=== PATIENT | female | born 1985 | race African-American/Black ===

== ENCOUNTER 2017-10-23 19:01 | Inpatient (IN) | payer MEDICAID ==
[~2017-10-23] VITALS: Ht 162.6 cm; Wt 107.0 kg
[~2017-10-23 19:01] MED LIST: DIVA500T35 PO; FERR-89 PO; MIRT30 PO; RISP2TAB4 PO; RISP3 PO
[2017-10-23 19:26] LABS: BASOPHILS # (AUTO) 0.04 K/uL (0.00-0.20); BASOPHILS % (AUTO) 0.4 % (0.0-2.0); EOSINOPHILS # (AUTO) 0.82 K/uL (0.00-0.70); EOSINOPHILS % (AUTO) 8.54 % (1.0-6.0); HEMATOCRIT 37.2 % (36-46); HEMOGLOBIN 12.2 g/dL (12.0-16.0); LYMPHOCYTES # (AUTO) 2.7 K/uL (1.0-4.8); LYMPHOCYTES % (AUTO) 28.3 % (22.0-44.0); MEAN CORPUSCULAR HEMOGLOBIN 25.4 pg (26.0-34.0); MEAN CORPUSCULAR HGB CONC 32.9 G/dL (31.0-37.0); MEAN CORPUSCULAR VOLUME 77 fL (80-100); MONOCYTES # (AUTO) 0.5 K/uL (0.1-1.0); MONOCYTES % (AUTO) 4.9 % (2.0-9.0); NEUTROPHILS # (AUTO) 5.5 K/uL (1.8-7.7); NEUTROPHILS % (AUTO) 57.9 % (40.0-70.0); PLATELET COUNT (AUTO) 303 K/uL (150-450); RED BLOOD CELL COUNT(AUTO) 4.81 MIL/uL (4.00-5.20); RED CELL DISTRIBUTION WIDTH 16.7 % (11.5-14.5); WHITE BLOOD COUNT (AUTO) 9.6 K/uL (4.5-11.0)
[2017-10-23 19:38] LABS: ANION GAP 12 mmol/L (8-16); CALCIUM, TOTAL 8.8 mg/dL (8.8-10.5); CARBON DIOXIDE 24 mmol/L (22-29); CHLORIDE 103 mmol/L (98-107); CREATININE 0.72 mg/dL (0.60-1.30); GLOMERULAR FILTR. RATE CALC > 60 mL/min (>60); SODIUM SERUM 139 mmol/L (136-145); UREA NITROGEN, BLOOD 10 mg/dL (7-18)
[2017-10-23 19:44] LABS: ALANINE AMINOTRANSFERASE 22 U/L (12-78); ALBUMIN 3.6 g/dL (3.4-5.0); ASPARTATE AMINOTRANSFERASE 18 U/L (15-37); BILIRUBIN,TOTAL 0.2 mg/dL (0.1-1.0); TOTAL PROTEIN, SERUM 7.8 g/dL (6.4-8.2)
[2017-10-23 19:47] LABS: RBC MORPHOLOGY COMMENT ABNORMAL RBC MORPH
[2017-10-23] MEDS ORDERED: HALOPERIDOL 5 MG TABLET PO ONE (20:00)
[2017-10-23] MEDS ORDERED: LORazepam 2 MG TABLET PO ONE (20:00)
[2017-10-23] MEDS ORDERED: DiphenhydrAMINE HCL 25 MG CAPSULE PO ONE (20:00)
[2017-10-23] MEDS ORDERED: HALOPERIDOL 5 MG TABLET PO PRN (21:30)
[2017-10-23 22:43] VITALS: BP 131/54
[2017-10-24 08:05] VITALS: BP 97/64
[2017-10-24 08:05] LABS: CHOL/HDL RATIO 3.1 (3.9-5.7)
[2017-10-24] MEDS ORDERED: LOPERAMIDE HCL 2 MG CAPSULE PO PRN (12:30)
[2017-10-24] MEDS ORDERED: ALBUTEROL SULFATE HFA 90 MCG/PUFF 8 GM INHALER IH PRN (12:30)
[2017-10-24] MEDS ORDERED: IBUPROFEN 600 MG TABLET PO PRN (12:30)
[2017-10-24] MEDS ORDERED: BACITRACIN 28.4 GM OINTMENT TP PRN (12:30)
[2017-10-24] MEDS ORDERED: ONDANSETRON HCL 4 MG TABLET PO PRN (12:30)
[2017-10-24] MEDS ORDERED: CloNIDine HCL 0.1 MG TABLET PO PRN (12:30)
[2017-10-24] MEDS ORDERED: BENZOCAINE/MENTHOL LOZENGE [8 LOZENGES/PACKET] MM PRN (12:30)
[2017-10-24] MEDS ORDERED: MAGNESIUM HYDROXIDE SUSPENSION 30 ML UDCUP PO PRN (12:30)
[2017-10-24] MEDS ORDERED: PETROLATUM,WHITE 71 GM JELLY TP PRN (12:30)
[2017-10-24] MEDS ORDERED: MAG HYDROX/AL HYDROX/SIMETH ES 30 ML SUSPENSION UDCUP PO PRN (12:30)
[2017-10-24] MEDS ORDERED: ACETAMINOPHEN 325 MG TABLET PO PRN (12:30)
[2017-10-24 16:30] VITALS: BP 121/74
[2017-10-24] MEDS: DIVALPROEX SODIUM 500 MG DR TABLET PO SCH (21:01)
[2017-10-24] MEDS: ZOLPIDEM TARTRATE 10 MG TABLET PO PRN (21:07)
[2017-10-25 05:42] VITALS: BP 119/74
[2017-10-25] MEDS: LORazepam 2 MG TABLET PO PRN ×2 (05:45→16:22)
[2017-10-25 08:35] VITALS: BP 121/74
[2017-10-25] MEDS: DIVALPROEX SODIUM 500 MG DR TABLET PO SCH ×2 (09:56→21:08)
[2017-10-25] MEDS: ARIPiprazole 10 MG TABLET PO SCH (09:56)
[2017-10-25] MEDS: ATENOLOL 50 MG TABLET PO SCH (09:57)
[2017-10-25 16:45] VITALS: BP 121/69
[2017-10-25] MEDS: ZOLPIDEM TARTRATE 10 MG TABLET PO PRN (21:06)
[2017-10-26 08:48] VITALS: BP 115/76
[2017-10-26] MEDS: ATENOLOL 50 MG TABLET PO SCH (09:00)
[2017-10-26] MEDS: DIVALPROEX SODIUM 500 MG DR TABLET PO SCH ×2 (09:24→20:42)
[2017-10-26] MEDS: ARIPiprazole 10 MG TABLET PO SCH (09:24)
[2017-10-26] MEDS: LORazepam 2 MG TABLET PO PRN (16:52)
[2017-10-26 17:15] VITALS: BP 108/69
[2017-10-26] MEDS: ZOLPIDEM TARTRATE 10 MG TABLET PO PRN (20:41)
[2017-10-27 08:44] VITALS: BP 104/66
[2017-10-27] MEDS: DIVALPROEX SODIUM 500 MG DR TABLET PO SCH (09:04)
[2017-10-27] MEDS: ATENOLOL 50 MG TABLET PO SCH (09:05)
[2017-10-27] MEDS: ARIPiprazole 10 MG TABLET PO SCH (09:05)
[2017-10-27] MEDS ORDERED: ARIP10TA8 PO (11:00)
[2017-10-27] MEDS ORDERED: ATEN25TA PO (11:00)
[2017-10-27] MEDS ORDERED: DIVA500T35 PO (11:01)
== END 2017-10-27 12:30 | disposition home or self-care (01) | DRG 750 ==
LOC: EMS 19:02 → 3EI 21:31 → UNDODISIN 10-25 14:00 → 3EI 10-26 22:39
DX: F25.0 Schizoaffective disorder, bipolar type (principal); Z68.41 Body mass index [BMI] 40.0-44.9, adult; I10 Essential (primary) hypertension; E66.01 Morbid (severe) obesity due to excess calories; F10.10 Alcohol abuse, uncomplicated; Z71.6 Tobacco abuse counseling; F17.210 Nicotine dependence, cigarettes, uncomplicated; F23 Brief psychotic disorder; G47.00 Insomnia, unspecified; K59.00 Constipation, unspecified; Z78.1 Physical restraint status
CPT/HCPCS: 99285; G0480

== ENCOUNTER 2018-01-09 00:54 | Inpatient (IN) | payer MEDICAID ==
[~2018-01-09] VITALS: Ht 162.6 cm; Wt 105.4 kg
[~2018-01-09 00:54] MED LIST changes: +ARIP10TA8 PO; +ATEN25TA PO; -MIRT30 PO; -RISP2TAB4 PO
[2018-01-09 01:36] LABS: BASOPHILS % (AUTO) 0.6 % (0.0-2.0); EOSINOPHILS % (AUTO) 7.2 % (1.0-6.0); HEMATOCRIT 39.3 % (36-46); HEMOGLOBIN 12.8 g/dL (12.0-16.0); LYMPHOCYTES # (AUTO) 3.3 K/uL (1.0-4.8); LYMPHOCYTES % (AUTO) 37.6 % (22.0-44.0); MEAN CORPUSCULAR HEMOGLOBIN 25.1 pg (26.0-34.0); MEAN CORPUSCULAR HGB CONC 32.6 G/dL (31.0-37.0); MEAN CORPUSCULAR VOLUME 77 fL (80-100); MONOCYTES # (AUTO) 0.5 K/uL (0.1-1.0); MONOCYTES % (AUTO) 5.2 % (2.0-9.0); NEUTROPHILS # (AUTO) 4.4 K/uL (1.8-7.7); NEUTROPHILS % (AUTO) 49.4 % (40.0-70.0); PLATELET COUNT (AUTO) 320 K/uL (150-450)
[2018-01-09] MEDS ORDERED: ZOLPIDEM TARTRATE 10 MG TABLET PO PRN (01:45)
[2018-01-09 01:58] LABS: ANION GAP 7 mmol/L (8-16); CALCIUM, TOTAL 9.1 mg/dL (8.8-10.5); CARBON DIOXIDE 30 mmol/L (22-29); CHLORIDE 102 mmol/L (98-107); GLOMERULAR FILTR. RATE CALC > 60 mL/min (>60); GLUCOSE,RANDOM 94 mg/dL (70-110); SODIUM SERUM 139 mmol/L (136-145); UREA NITROGEN, BLOOD 13 mg/dL (7-18)
[2018-01-09] MEDS ORDERED: DiphenhydrAMINE HCL 50 MG/ML VIAL IM ONE (02:00)
[2018-01-09] MEDS ORDERED: HALOPERIDOL LACTATE 5 MG/ML VIAL IM ONE (02:00)
[2018-01-09] MEDS ORDERED: LORazepam 2 MG/ML VIAL IM ONE (02:00)
[2018-01-09 02:04] LABS: ALANINE AMINOTRANSFERASE 22 U/L (12-78); ALBUMIN 3.7 g/dL (3.4-5.0); ALKALINE PHOSPHATASE 80 U/L (46-116); ASPARTATE AMINOTRANSFERASE 24 U/L (15-37); BILIRUBIN,TOTAL 0.2 mg/dL (0.1-1.0)
[2018-01-09 02:10] LABS: VALPROIC ACID < 3 mcg/mL (50-100)
[2018-01-09 06:09] LABS: CHOL/HDL RATIO 3.6 (3.9-5.7); CHOLESTEROL 199 mg/dL (131-200); HDL CHOLESTEROL 56 mg/dL (40-60); LDL CHOL (CALC.) 124 mg/dL (0-130); TRIGLYCERIDES 95 mg/dL (15-150)
[2018-01-09] MEDS: LORazepam 2 MG TABLET PO PRN (12:38)
[2018-01-09] MEDS: HALOPERIDOL 5 MG TABLET PO PRN (12:38)
[2018-01-09 13:28] LABS: AMPHET/METH SCREEN,URINE NEGATIVE (NEGATIVE); BARBITURATE SCREEN, URINE NEGATIVE (NEGATIVE); BENZODIAZEPINES SCREEN,URINE NEGATIVE (NEGATIVE); CANNABINOID SCREEN,URINE NEGATIVE (NEGATIVE); COCAINE SCREEN,URINE NEGATIVE (NEGATIVE); METHADONE SCREEN, URINE NEGATIVE (NEGATIVE); OPIATE SCREEN,URINE NEGATIVE (NEGATIVE); PHENCYCLIDINE SCREEN,URINE NEGATIVE (NEGATIVE)
[2018-01-09 13:49] LABS: HCG,QUAL RESULT NEGATIVE (NEGATIVE)
[2018-01-09 15:00] VITALS: BP 106/74
[2018-01-10 08:30] VITALS: BP 103/74
[2018-01-10] MEDS ORDERED: MAGNESIUM HYDROXIDE SUSPENSION 30 ML UDCUP PO PRN (09:00)
[2018-01-10] MEDS ORDERED: BENZOCAINE/MENTHOL LOZENGE [8 LOZENGES/PACKET] MM PRN (09:00)
[2018-01-10] MEDS ORDERED: BACITRACIN 28.4 GM OINTMENT TP PRN (09:00)
[2018-01-10] MEDS ORDERED: PETROLATUM,WHITE 71 GM JELLY TP PRN (09:00)
[2018-01-10] MEDS ORDERED: IBUPROFEN 600 MG TABLET PO PRN (09:00)
[2018-01-10] MEDS ORDERED: ONDANSETRON HCL 4 MG TABLET PO PRN (09:00)
[2018-01-10] MEDS ORDERED: LOPERAMIDE HCL 2 MG CAPSULE PO PRN (09:00)
[2018-01-10] MEDS ORDERED: MAG HYDROX/AL HYDROX/SIMETH ES 30 ML SUSPENSION UDCUP PO PRN (09:00)
[2018-01-10] MEDS ORDERED: CloNIDine HCL 0.1 MG TABLET PO PRN (09:00)
[2018-01-10] MEDS ORDERED: ALBUTEROL SULFATE HFA 90 MCG/PUFF 8 GM INHALER IH PRN (09:00)
[2018-01-10] MEDS ORDERED: ACETAMINOPHEN 325 MG TABLET PO PRN (09:00)
[2018-01-10] MEDS: HALOPERIDOL 5 MG TABLET PO PRN (11:09)
[2018-01-10] MEDS: LORazepam 2 MG TABLET PO PRN (11:09)
[2018-01-10] MEDS: NICOTINE 14 MG/24 HOUR PATCH TD SCH (11:11)
[2018-01-10] MEDS: ARIPiprazole 10 MG TABLET PO SCH (14:14)
[2018-01-10] MEDS: DIVALPROEX SODIUM 500 MG DR TABLET PO SCH (20:15)
[2018-01-11 01:30] VITALS: BP 106/72
[2018-01-11] MEDS: ARIPiprazole 10 MG TABLET PO SCH (09:33)
[2018-01-11] MEDS: NICOTINE 14 MG/24 HOUR PATCH TD SCH (09:33)
[2018-01-11] MEDS: DIVALPROEX SODIUM 500 MG DR TABLET PO SCH (09:34)
[2018-01-11] MEDS: HALOPERIDOL 5 MG TABLET PO PRN (09:35)
[2018-01-11] MEDS: LORazepam 2 MG TABLET PO PRN (09:35)
[2018-01-11 09:41] VITALS: BP 112/80
[2018-01-11] MEDS ORDERED: ARIP10TA8 PO (11:47)
[2018-01-11] MEDS ORDERED: DIVA250T4 PO (11:48)
== END 2018-01-11 14:00 | disposition home or self-care (01) | DRG 750 ==
LOC: EMS 00:56 → 3EI 13:24
DX: F25.0 Schizoaffective disorder, bipolar type (principal); I10 Essential (primary) hypertension; E66.9 Obesity, unspecified; G47.00 Insomnia, unspecified; K59.00 Constipation, unspecified; F17.210 Nicotine dependence, cigarettes, uncomplicated; Z68.39 Body mass index [BMI] 39.0-39.9, adult; Z71.6 Tobacco abuse counseling; Z79.899 Other long term (current) drug therapy; Z98.891 History of uterine scar from previous surgery
CPT/HCPCS: 96372; 99285; G0480; J1200; J1630; J2060

== ENCOUNTER 2018-03-06 12:48 | Emergency (ER) | payer MEDICAID, OTHER ==
[~2018-03-06] VITALS: Ht 160 cm; Wt 115.0 kg
[~2018-03-06 12:48] MED LIST changes: -ATEN25TA PO; +DIVA250T4 PO; -DIVA500T35 PO; -FERR-89 PO; -RISP3 PO
[2018-03-06] MEDS ORDERED: VALPROIC ACID 250 MG CAPSULE PO ONE (13:15)
[2018-03-06] MEDS ORDERED: ARIPiprazole 10 MG TABLET PO ONE (13:15)
[2018-03-06] MEDS ORDERED: DIVA500T35 PO (13:16)
[2018-03-06 14:39] VITALS: BP 126/76
== END 2018-03-06 14:43 | disposition home or self-care (01) ==
LOC: EMS 12:49
DX: F25.9 Schizoaffective disorder, unspecified (principal); J40 Bronchitis, not specified as acute or chronic; F31.9 Bipolar disorder, unspecified; F17.210 Nicotine dependence, cigarettes, uncomplicated; Z76.0 Encounter for issue of repeat prescription
CPT/HCPCS: 99284; 99406

== ENCOUNTER 2018-05-05 23:00 | Emergency (ER) | payer MEDICAID, OTHER ==
[~2018-05-05] VITALS: Ht 167.6 cm; Wt 84.1 kg
[~2018-05-05 23:00] MED LIST changes: -DIVA250T4 PO; +DIVA500T35 PO
[2018-05-05 23:41] LABS: BASOPHILS % (AUTO) 0.4 % (0.0-2.0); EOSINOPHILS % (AUTO) 7.7 % (1.0-6.0); HEMATOCRIT 38.7 % (36-46); HEMOGLOBIN 12.7 g/dL (12.0-16.0); LYMPHOCYTES # (AUTO) 3.5 K/uL (1.0-4.8); LYMPHOCYTES % (AUTO) 31.1 % (22.0-44.0); MEAN CORPUSCULAR HEMOGLOBIN 24.7 pg (26.0-34.0); MEAN CORPUSCULAR HGB CONC 32.7 G/dL (31.0-37.0); MEAN CORPUSCULAR VOLUME 76 fL (80-100); MONOCYTES # (AUTO) 0.7 K/uL (0.1-1.0); MONOCYTES % (AUTO) 5.9 % (2.0-9.0); NEUTROPHILS # (AUTO) 6.2 K/uL (1.8-7.7); NEUTROPHILS % (AUTO) 54.9 % (40.0-70.0); PLATELET COUNT (AUTO) 322 K/uL (150-450); RED BLOOD CELL COUNT(AUTO) 5.12 MIL/uL (4.00-5.20)
[2018-05-05 23:57] LABS: ANION GAP 4 mmol/L (8-16); CALCIUM, TOTAL 8.9 mg/dL (8.8-10.5); CARBON DIOXIDE 30 mmol/L (22-29); CHLORIDE 104 mmol/L (98-107); GLOMERULAR FILTR. RATE CALC > 60 mL/min (>60); GLUCOSE,RANDOM 82 mg/dL (70-110); POTASSIUM 3.6 mmol/L (3.5-5.1); SODIUM SERUM 138 mmol/L (136-145); UREA NITROGEN, BLOOD 14 mg/dL (7-18)
[2018-05-06 00:04] LABS: ALANINE AMINOTRANSFERASE 21 U/L (12-78); ALBUMIN 3.7 g/dL (3.4-5.0); ALKALINE PHOSPHATASE 78 U/L (46-116); ASPARTATE AMINOTRANSFERASE 14 U/L (15-37); BILIRUBIN,TOTAL 0.3 mg/dL (0.1-1.0); LIPASE 262 U/L (73-393)
[2018-05-06] MEDS ORDERED: LORazepam 2 MG TABLET PO ONE (03:45)
[2018-05-06] MEDS ORDERED: HALOPERIDOL 5 MG TABLET PO ONE (03:45)
[2018-05-06] MEDS ORDERED: DiphenhydrAMINE HCL 25 MG CAPSULE PO ONE (03:45)
[2018-05-06 04:20] VITALS: BP 116/62
== END 2018-05-06 06:20 | disposition home or self-care (01) ==
LOC: EMS 23:01
DX: F25.0 Schizoaffective disorder, bipolar type (principal); R10.9 Unspecified abdominal pain
CPT/HCPCS: 99284

== ENCOUNTER 2018-09-23 09:05 | Emergency (ER) | payer OTHER ==
[~2018-09-23] VITALS: Ht 162.6 cm; Wt 100.0 kg
[~2018-09-23 09:05] MED LIST changes: +DIVA-78 PO; -DIVA500T35 PO
[2018-09-23 09:29] LABS: GLUCOSE,POINT OF CARE 102 MG/DL (70-110)
[2018-09-23 10:35] LABS: BASOPHILS % (AUTO) 0.8 % (0.0-2.0); EOSINOPHILS % (AUTO) 3.3 % (1.0-6.0); HEMATOCRIT 37.6 % (36-46); HEMOGLOBIN 12.3 g/dL (12.0-16.0); LYMPHOCYTES # (AUTO) 2.1 K/uL (1.0-4.8); MEAN CORPUSCULAR HEMOGLOBIN 24.4 pg (26.0-34.0); MEAN CORPUSCULAR HGB CONC 32.6 G/dL (31.0-37.0); MEAN CORPUSCULAR VOLUME 75 fL (80-100); MONOCYTES # (AUTO) 0.7 K/uL (0.1-1.0); MONOCYTES % (AUTO) 6.3 % (2.0-9.0); NEUTROPHILS # (AUTO) 7.8 K/uL (1.8-7.7); NEUTROPHILS % (AUTO) 70.6 % (40.0-70.0); PLATELET COUNT (AUTO) 253 K/uL (150-450); RED BLOOD CELL COUNT(AUTO) 5.03 MIL/uL (4.00-5.20); RED CELL DISTRIBUTION WIDTH 16.4 % (11.5-14.5)
[2018-09-23 10:41] LABS: ANION GAP 7 mmol/L (8-16); CALCIUM, TOTAL 8.7 mg/dL (8.8-10.5); CARBON DIOXIDE 26 mmol/L (22-29); CHLORIDE 101 mmol/L (98-107); CREATININE 0.68 mg/dL (0.60-1.30); GLOMERULAR FILTR. RATE CALC > 60 mL/min (>60); GLUCOSE,RANDOM 104 mg/dL (70-110); POTASSIUM 4.2 mmol/L (3.5-5.1); SODIUM SERUM 134 mmol/L (136-145); UREA NITROGEN, BLOOD 13 mg/dL (7-18)
[2018-09-23 10:59] LABS: ALANINE AMINOTRANSFERASE 29 U/L (12-78); ALBUMIN 3.5 g/dL (3.4-5.0); ALKALINE PHOSPHATASE 70 U/L (46-116); ASPARTATE AMINOTRANSFERASE 29 U/L (15-37); BILIRUBIN,TOTAL 0.3 mg/dL (0.1-1.0); HCG,QUANTITATIVE < 1 mIU/mL (0-6); LIPASE 124 U/L (73-393); TOTAL PROTEIN, SERUM 7.7 g/dL (6.4-8.2)
[2018-09-23 11:03] LABS: VALPROIC ACID < 3 mcg/mL (50-100)
[2018-09-23 11:33] VITALS: BP 150/100
== END 2018-09-23 11:52 | disposition home or self-care (01) ==
LOC: EMS 09:08
DX: R10.13 Epigastric pain (principal); R11.0 Nausea; F31.9 Bipolar disorder, unspecified; F20.9 Schizophrenia, unspecified; F15.90 Other stimulant use, unspecified, uncomplicated; Z79.899 Other long term (current) drug therapy

== ENCOUNTER 2018-10-05 23:50 | Inpatient (IN) | payer MEDICAID, OTHER ==
[2018-10-06] MEDS ORDERED: ZOLPIDEM TARTRATE 10 MG TABLET PO PRN (01:45)
[2018-10-06] MEDS ORDERED: DiphenhydrAMINE HCL 50 MG/ML VIAL IM ONE (02:00)
[2018-10-06] MEDS ORDERED: LORazepam 2 MG/ML VIAL IM ONE (02:00)
[2018-10-06] MEDS ORDERED: HALOPERIDOL LACTATE 5 MG/ML VIAL IM ONE (02:00)
[2018-10-06] MEDS ORDERED: DiphenhydrAMINE HCL 50 MG/ML VIAL ONE (02:02)
[2018-10-06] MEDS ORDERED: LORazepam 2 MG/ML VIAL ONE (02:02)
[2018-10-06] MEDS ORDERED: HALOPERIDOL LACTATE 5 MG/ML VIAL ONE (02:02)
[2018-10-06 08:20] VITALS: BP 133/71
[2018-10-06 16:21] VITALS: BP 106/73
[2018-10-06] MEDS: DIVALPROEX SODIUM 500 MG DR TABLET PO SCH (20:49)
[2018-10-07 08:35] LABS: BASOPHILS % (AUTO) 0.4 % (0.0-2.0); EOSINOPHILS % (AUTO) 7.3 % (1.0-6.0); HEMATOCRIT 34.7 % (36-46); HEMOGLOBIN 11.6 g/dL (12.0-16.0); LYMPHOCYTES # (AUTO) 2.5 K/uL (1.0-4.8); LYMPHOCYTES % (AUTO) 31.2 % (22.0-44.0); MEAN CORPUSCULAR HEMOGLOBIN 24.3 pg (26.0-34.0); MEAN CORPUSCULAR HGB CONC 33.4 G/dL (31.0-37.0); MEAN CORPUSCULAR VOLUME 73 fL (80-100); MONOCYTES # (AUTO) 0.6 K/uL (0.1-1.0); MONOCYTES % (AUTO) 7.2 % (2.0-9.0); NEUTROPHILS # (AUTO) 4.4 K/uL (1.8-7.7); NEUTROPHILS % (AUTO) 53.9 % (40.0-70.0); PLATELET COUNT (AUTO) 322 K/uL (150-450); RED BLOOD CELL COUNT(AUTO) 4.76 MIL/uL (4.00-5.20); RED CELL DISTRIBUTION WIDTH 15.8 % (11.5-14.5)
[2018-10-07 08:57] LABS: HEMOGLOBIN A1C 5.4 % (4.5-6.2)
[2018-10-07 09:23] LABS: ALANINE AMINOTRANSFERASE 18 U/L (12-78); ALBUMIN 2.8 g/dL (3.4-5.0); ALKALINE PHOSPHATASE 53 U/L (46-116); ANION GAP 6 mmol/L (8-16); ASPARTATE AMINOTRANSFERASE 13 U/L (15-37); BILIRUBIN,TOTAL 0.4 mg/dL (0.1-1.0); CALCIUM, TOTAL 8.5 mg/dL (8.8-10.5); CARBON DIOXIDE 27 mmol/L (22-29); CHLORIDE 107 mmol/L (98-107); CHOL/HDL RATIO 2.8 (3.9-5.7); CHOLESTEROL 128 mg/dL (131-200); CREATININE 0.76 mg/dL (0.60-1.30); GLOMERULAR FILTR. RATE CALC > 60 mL/min (>60); GLUCOSE,RANDOM 74 mg/dL (70-110); HCG,QUANTITATIVE < 1 mIU/mL (0-6); HDL CHOLESTEROL 45 mg/dL (40-60); LDL CHOL (CALC.) 74 mg/dL (0-130); POTASSIUM 4.2 mmol/L (3.5-5.1); SODIUM SERUM 140 mmol/L (136-145); THYROID STIMULATING HORMONE 1.26 uIU/mL (0.36-3.74); TOTAL PROTEIN, SERUM 6.5 g/dL (6.4-8.2); TRIGLYCERIDES 46 mg/dL (15-150); UREA NITROGEN, BLOOD 12 mg/dL (7-18)
[2018-10-07] MEDS: ARIPiprazole 15 MG TABLET PO SCH (09:36)
[2018-10-07] MEDS: DIVALPROEX SODIUM 500 MG DR TABLET PO SCH ×2 (09:36→20:54)
[2018-10-07 16:13] VITALS: BP 109/68
[2018-10-08 08:19] VITALS: BP 137/60
[2018-10-08] MEDS: ARIPiprazole 15 MG TABLET PO SCH (08:54)
[2018-10-08] MEDS: DIVALPROEX SODIUM 500 MG DR TABLET PO SCH ×2 (08:54→20:34)
[2018-10-08 16:11] VITALS: BP 141/82
[2018-10-09 05:25] VITALS: BP 112/70
[2018-10-09] MEDS: LORazepam 2 MG TABLET PO PRN ×2 (05:30→17:01)
[2018-10-09] MEDS: HALOPERIDOL 5 MG TABLET PO PRN ×2 (05:30→17:01)
[2018-10-09 08:18] VITALS: BP 123/82
[2018-10-09] MEDS: DIVALPROEX SODIUM 500 MG DR TABLET PO SCH ×2 (08:38→21:05)
[2018-10-09] MEDS: ARIPiprazole 15 MG TABLET PO SCH (08:38)
[2018-10-09 16:10] VITALS: BP 118/69
[2018-10-10] MEDS: ARIPiprazole 15 MG TABLET PO SCH (09:10)
[2018-10-10] MEDS: DIVALPROEX SODIUM 500 MG DR TABLET PO SCH ×2 (09:10→21:31)
[2018-10-10] MEDS: LORazepam 2 MG TABLET PO PRN ×2 (09:15→16:48)
[2018-10-10] MEDS: HALOPERIDOL 5 MG TABLET PO PRN (16:48)
[2018-10-10] MEDS ORDERED: ARIP15TA2 PO (18:11)
[2018-10-10 18:12] VITALS: BP 128/72
[2018-10-11 08:22] VITALS: BP 101/65
[2018-10-11] MEDS: LORazepam 2 MG TABLET PO PRN ×2 (09:01→16:21)
[2018-10-11] MEDS: HALOPERIDOL 5 MG TABLET PO PRN (09:01)
[2018-10-11] MEDS: ARIPiprazole 15 MG TABLET PO SCH (09:02)
[2018-10-11] MEDS: DIVALPROEX SODIUM 500 MG DR TABLET PO SCH ×2 (09:02→20:28)
[2018-10-11 18:06] VITALS: BP 110/70
[2018-10-12 01:25] VITALS: BP 103/63
[2018-10-12 08:26] VITALS: BP 105/60
[2018-10-12] MEDS ORDERED: NICOTINE 7 MG/24 HOUR PATCH TD SCH (09:00)
[2018-10-12] MEDS: ARIPiprazole 15 MG TABLET PO SCH (09:16)
[2018-10-12] MEDS: DIVALPROEX SODIUM 500 MG DR TABLET PO SCH (09:16)
== END 2018-10-12 16:00 | disposition home or self-care (01) | DRG 750 ==
LOC: B3A 10-06 01:56 → B2S 10-11 16:10
PROVIDERS: ADMIT Psychiatry & Neurology Psychiatry; ATTEND Psychiatry & Neurology Psychiatry
DX: F20.0 Paranoid schizophrenia (principal); R45.851 Suicidal ideations; G47.00 Insomnia, unspecified; K59.00 Constipation, unspecified; Z28.21 Immunization not carried out because of patient refusal; Z79.899 Other long term (current) drug therapy
CPT/HCPCS: 83036; 84439; 84443; J1200; J1630; J2060

== ENCOUNTER 2018-11-05 20:43 | Inpatient (IN) | payer MEDICAID, OTHER ==
[~2018-11-05] VITALS: Ht 154.9 cm; Wt 102.3 kg
[~2018-11-05 20:43] MED LIST changes: +ARIP662S IM; +NALT50TA PO
[2018-11-05 21:32] LABS: BASOPHILS % (AUTO) 0.7 % (0.0-2.0); EOSINOPHILS % (AUTO) 4.2 % (1.0-6.0); HEMATOCRIT 39.9 % (36-46); HEMOGLOBIN 12.9 g/dL (12.0-16.0); LYMPHOCYTES # (AUTO) 3.1 K/uL (1.0-4.8); LYMPHOCYTES % (AUTO) 24.5 % (22.0-44.0); MEAN CORPUSCULAR HEMOGLOBIN 24.1 pg (26.0-34.0); MEAN CORPUSCULAR HGB CONC 32.3 G/dL (31.0-37.0); MEAN CORPUSCULAR VOLUME 75 fL (80-100); MONOCYTES # (AUTO) 0.9 K/uL (0.1-1.0); MONOCYTES % (AUTO) 7.5 % (2.0-9.0); NEUTROPHILS # (AUTO) 7.9 K/uL (1.8-7.7); NEUTROPHILS % (AUTO) 63.1 % (40.0-70.0); PLATELET COUNT (AUTO) 310 K/uL (150-450); RED BLOOD CELL COUNT(AUTO) 5.35 MIL/uL (4.00-5.20); RED CELL DISTRIBUTION WIDTH 16.4 % (11.5-14.5)
[2018-11-05 21:34] LABS: ANION GAP 6 mmol/L (8-16); CALCIUM, TOTAL 8.6 mg/dL (8.8-10.5); CARBON DIOXIDE 30 mmol/L (22-29); CHLORIDE 100 mmol/L (98-107); CREATININE 0.81 mg/dL (0.60-1.30); GLOMERULAR FILTR. RATE CALC > 60 mL/min (>60); GLUCOSE,RANDOM 92 mg/dL (70-110); POTASSIUM 3.6 mmol/L (3.5-5.1); SODIUM SERUM 136 mmol/L (136-145); UREA NITROGEN, BLOOD 16 mg/dL (7-18)
[2018-11-05 21:45] LABS: ALANINE AMINOTRANSFERASE 26 U/L (12-78); ALBUMIN 3.7 g/dL (3.4-5.0); ALKALINE PHOSPHATASE 57 U/L (46-116); ASPARTATE AMINOTRANSFERASE 31 U/L (15-37); BILIRUBIN,TOTAL 0.4 mg/dL (0.1-1.0); HCG,QUANTITATIVE < 1 mIU/mL (0-6); LIPASE 128 U/L (73-393); VALPROIC ACID 4 mcg/mL (50-100)
[2018-11-05 22:11] LABS: APPEARANCE,URINE CLOUDY (CLEAR); BILIRUBIN,URINE NEGATIVE (NEGATIVE); GLUCOSE, URINE (UA) NEGATIVE (NEGATIVE); KETONES,URINE >=80 mg/dL (NEGATIVE); LEUKOCYTE ESTERASE ,URINE NEGATIVE (NEGATIVE); NITRATE,URINE NEGATIVE (NEGATIVE); OCCULT BLOOD,URINE TRACE (NEGATIVE); PROTEIN,URINE TRACE (NEGATIVE); UROBILINOGEN,URINE 0.2 mg/dL (<=1.0)
[2018-11-05 22:22] LABS: BACTERIA,URINE Moderate /HPF (None Seen); SQUAMOUS EPITHELIAL CELL,UR Many /LPF (None Seen); WBC,URINE 0-2 /HPF (0-5)
[2018-11-05 23:16] LABS: AMPHET/METH SCREEN,URINE POSITIVE (NEGATIVE); BARBITURATE SCREEN, URINE NEGATIVE (NEGATIVE); BENZODIAZEPINES SCREEN,URINE NEGATIVE (NEGATIVE); CANNABINOID SCREEN,URINE NEGATIVE (NEGATIVE); COCAINE SCREEN,URINE NEGATIVE (NEGATIVE); METHADONE SCREEN, URINE NEGATIVE (NEGATIVE); OPIATE SCREEN,URINE NEGATIVE (NEGATIVE)
[2018-11-05 23:17] LABS: PHENCYCLIDINE SCREEN,URINE NEGATIVE (NEGATIVE)
[2018-11-06] MEDS ORDERED: DiphenhydrAMINE HCL 50 MG CAPSULE PO ONE (01:30)
[2018-11-06] MEDS ORDERED: LORazepam 2 MG TABLET PO ONE (01:30)
[2018-11-06] MEDS ORDERED: HALOPERIDOL 5 MG TABLET PO ONE (01:30)
[2018-11-06] MEDS ORDERED: ZOLPIDEM TARTRATE 10 MG TABLET PO PRN (02:15)
[2018-11-06 05:13] VITALS: BP 107/74
[2018-11-06] MEDS ORDERED: PNEUMOCOCCAL VACCINE POLYVALENT 0.5 ML VIAL [PPSV23] IM ONE (06:30)
[2018-11-06] MEDS: HALOPERIDOL 5 MG TABLET PO PRN ×2 (10:15→16:59)
[2018-11-06] MEDS: LORazepam 2 MG TABLET PO PRN ×2 (10:15→16:59)
[2018-11-06] MEDS ORDERED: BENZOCAINE/MENTHOL LOZENGE MM PRN (15:00)
[2018-11-06] MEDS ORDERED: ACETAMINOPHEN 325 MG TABLET PO PRN (15:00)
[2018-11-06] MEDS ORDERED: ALBUTEROL SULFATE HFA 90 MCG/PUFF 8 GM INHALER IH PRN (15:00)
[2018-11-06] MEDS ORDERED: MAG HYDROX/AL HYDROX/SIMETH ES 30 ML SUSPENSION UDCUP PO PRN (15:00)
[2018-11-06] MEDS ORDERED: BACITRACIN 28.4 GM OINTMENT TP PRN (15:00)
[2018-11-06] MEDS ORDERED: MAGNESIUM HYDROXIDE SUSPENSION 30 ML UDCUP PO PRN (15:00)
[2018-11-06] MEDS ORDERED: LOPERAMIDE HCL 2 MG CAPSULE PO PRN (15:00)
[2018-11-06] MEDS ORDERED: IBUPROFEN 600 MG TABLET PO PRN (15:00)
[2018-11-06] MEDS ORDERED: CloNIDine HCL 0.1 MG TABLET PO PRN (15:00)
[2018-11-06] MEDS ORDERED: ONDANSETRON HCL 4 MG TABLET PO PRN (15:00)
[2018-11-06] MEDS ORDERED: PETROLATUM,WHITE 71 GM JELLY TP PRN (15:00)
[2018-11-06 16:00] VITALS: BP 115/65
[2018-11-06] MEDS: NITROFURANTOIN/NITROFURAN MAC 100 MG CAPSULE [MACROBID] PO SCH (16:58)
[2018-11-06] MEDS ORDERED: ChlorproMAZINE HCL 100 MG TABLET PO PRN (18:30)
[2018-11-06] MEDS: DIVALPROEX SODIUM 500 MG ER TABLET PO SCH (20:26)
[2018-11-06] MEDS: ARIPiprazole 10 MG TABLET PO SCH (20:27)
[2018-11-07 08:09] VITALS: BP 123/81
[2018-11-07] MEDS: NITROFURANTOIN/NITROFURAN MAC 100 MG CAPSULE [MACROBID] PO SCH ×2 (08:23→16:20)
[2018-11-07] MEDS: LORazepam 2 MG TABLET PO PRN (08:23)
[2018-11-07] MEDS: HALOPERIDOL 5 MG TABLET PO PRN (08:59)
[2018-11-07 16:13] VITALS: BP 117/63
[2018-11-07] MEDS: ARIPiprazole 10 MG TABLET PO SCH (20:10)
[2018-11-07] MEDS: DIVALPROEX SODIUM 500 MG ER TABLET PO SCH (20:10)
[2018-11-08 08:56] VITALS: BP 113/76
[2018-11-08] MEDS: NITROFURANTOIN/NITROFURAN MAC 100 MG CAPSULE [MACROBID] PO SCH ×2 (09:20→16:42)
[2018-11-08] MEDS: HALOPERIDOL 5 MG TABLET PO PRN ×2 (10:04→16:42)
[2018-11-08] MEDS: LORazepam 2 MG TABLET PO PRN (16:42)
[2018-11-08 17:19] VITALS: BP 137/97
[2018-11-08] MEDS: ARIPiprazole 10 MG TABLET PO SCH (20:38)
[2018-11-08] MEDS: DIVALPROEX SODIUM 500 MG ER TABLET PO SCH (20:38)
[2018-11-09 06:52] VITALS: BP 127/80
[2018-11-09 08:12] VITALS: BP 121/84
[2018-11-09] MEDS: NITROFURANTOIN/NITROFURAN MAC 100 MG CAPSULE [MACROBID] PO SCH ×2 (08:59→16:19)
[2018-11-09] MEDS: HALOPERIDOL 5 MG TABLET PO PRN (08:59)
[2018-11-09] MEDS: LORazepam 2 MG TABLET PO PRN ×2 (08:59→16:23)
[2018-11-09 16:15] VITALS: BP 111/69
[2018-11-09] MEDS: DIVALPROEX SODIUM 500 MG ER TABLET PO SCH (20:50)
[2018-11-09] MEDS: ARIPiprazole 10 MG TABLET PO SCH (21:01)
[2018-11-10 06:14] VITALS: BP 120/78
[2018-11-10 08:16] VITALS: BP 114/77
[2018-11-10] MEDS: LORazepam 2 MG TABLET PO PRN ×2 (08:37→16:56)
[2018-11-10] MEDS: NITROFURANTOIN/NITROFURAN MAC 100 MG CAPSULE [MACROBID] PO SCH ×2 (08:37→16:56)
[2018-11-10] MEDS: HALOPERIDOL 5 MG TABLET PO PRN (08:37)
[2018-11-10 16:27] VITALS: BP 122/79
[2018-11-10] MEDS: ARIPiprazole 10 MG TABLET PO SCH (20:29)
[2018-11-10] MEDS: DIVALPROEX SODIUM 500 MG ER TABLET PO SCH (20:29)
[2018-11-11 08:25] VITALS: BP 120/74
[2018-11-11] MEDS: NITROFURANTOIN/NITROFURAN MAC 100 MG CAPSULE [MACROBID] PO SCH (08:40)
[2018-11-11] MEDS: LORazepam 2 MG TABLET PO PRN (08:40)
[2018-11-11] MEDS: HALOPERIDOL 5 MG TABLET PO PRN (09:20)
[2018-11-11 16:04] VITALS: BP 116/70
[2018-11-11] MEDS: ARIPiprazole 10 MG TABLET PO SCH (20:22)
[2018-11-11] MEDS: DIVALPROEX SODIUM 500 MG ER TABLET PO SCH (20:23)
[2018-11-12 00:40] VITALS: BP 122/78
[2018-11-12 08:10] VITALS: BP 125/68
[2018-11-12] MEDS: LORazepam 2 MG TABLET PO PRN (08:36)
[2018-11-12] MEDS: HALOPERIDOL 5 MG TABLET PO PRN (08:36)
[2018-11-12 16:07] VITALS: BP 110/63
[2018-11-12] MEDS: ARIPiprazole 10 MG TABLET PO SCH (20:05)
[2018-11-12] MEDS: DIVALPROEX SODIUM 500 MG ER TABLET PO SCH (20:05)
[2018-11-12] MEDS ORDERED: DIVA500T52 PO (21:08)
[2018-11-12] MEDS ORDERED: ARIP10TA8 PO (21:08)
[2018-11-13 05:42] VITALS: BP 115/60
[2018-11-13 08:22] VITALS: BP 113/66
== END 2018-11-13 12:10 | disposition home or self-care (01) | DRG 750 ==
LOC: EMS 20:44 → B3A 11-06 03:00
PROVIDERS: ADMIT Psychiatry & Neurology Psychiatry; ATTEND Psychiatry & Neurology Psychiatry
DX: F25.1 Schizoaffective disorder, depressive type (principal); E66.01 Morbid (severe) obesity due to excess calories; F10.10 Alcohol abuse, uncomplicated; F12.20 Cannabis dependence, uncomplicated; F15.10 Other stimulant abuse, uncomplicated; F17.200 Nicotine dependence, unspecified, uncomplicated; E78.5 Hyperlipidemia, unspecified; F41.9 Anxiety disorder, unspecified; G47.00 Insomnia, unspecified; K59.00 Constipation, unspecified; N39.0 Urinary tract infection, site not specified; Z91.19 Patient's noncompliance with other medical treatment and regimen; Z91.83 Wandering in diseases classified elsewhere; Z79.899 Other long term (current) drug therapy; Z71.6 Tobacco abuse counseling; Z71.51 Drug abuse counseling and surveillance of drug abuser; Z71.41 Alcohol abuse counseling and surveillance of alcoholic; Z28.21 Immunization not carried out because of patient refusal; Z68.41 Body mass index [BMI] 40.0-44.9, adult
CPT/HCPCS: 87081; 87086; 96374

== ENCOUNTER 2019-01-01 04:21 | Emergency (ER) | payer MEDICAID, OTHER ==
[~2019-01-01] VITALS: Ht 175.3 cm; Wt 100.0 kg
[~2019-01-01 04:21] MED LIST changes: -ARIP662S IM; -DIVA-78 PO; +DIVA500T52 PO; -NALT50TA PO
[2019-01-01 06:37] VITALS: BP 122/70
== END 2019-01-01 06:45 | disposition home or self-care (01) ==
LOC: EMS 04:22
DX: N93.9 Abnormal uterine and vaginal bleeding, unspecified (principal); F31.9 Bipolar disorder, unspecified; F20.9 Schizophrenia, unspecified; F17.210 Nicotine dependence, cigarettes, uncomplicated; F15.90 Other stimulant use, unspecified, uncomplicated
CPT/HCPCS: 76856

== ENCOUNTER 2019-01-01 12:02 | Inpatient (IN) | payer MEDICAID, OTHER ==
[~2019-01-01] VITALS: Ht 162.6 cm; Wt 102.9 kg
[2019-01-01 12:33] LABS: BASOPHILS % (AUTO) 0.6 % (0.0-2.0); EOSINOPHILS % (AUTO) 8.1 % (1.0-6.0); HEMATOCRIT 36.2 % (36-46); HEMOGLOBIN 11.4 g/dL (12.0-16.0); LYMPHOCYTES # (AUTO) 2.2 K/uL (1.0-4.8); LYMPHOCYTES % (AUTO) 28.3 % (22.0-44.0); MEAN CORPUSCULAR HEMOGLOBIN 23.5 pg (26.0-34.0); MEAN CORPUSCULAR HGB CONC 31.5 G/dL (31.0-37.0); MEAN CORPUSCULAR VOLUME 74 fL (80-100); MONOCYTES # (AUTO) 0.5 K/uL (0.1-1.0); MONOCYTES % (AUTO) 6.8 % (2.0-9.0); NEUTROPHILS # (AUTO) 4.4 K/uL (1.8-7.7); NEUTROPHILS % (AUTO) 56.2 % (40.0-70.0); PLATELET COUNT (AUTO) 303 K/uL (150-450); RED BLOOD CELL COUNT(AUTO) 4.86 MIL/uL (4.00-5.20); RED CELL DISTRIBUTION WIDTH 16.9 % (11.5-14.5)
[2019-01-01 12:45] LABS: ANION GAP 3 mmol/L (8-16); CALCIUM, TOTAL 8.7 mg/dL (8.8-10.5); CARBON DIOXIDE 29 mmol/L (22-29); CHLORIDE 103 mmol/L (98-107); CREATININE 0.63 mg/dL (0.60-1.30); GLOMERULAR FILTR. RATE CALC > 60 mL/min (>60); GLUCOSE,RANDOM 114 mg/dL (70-110); POTASSIUM 3.5 mmol/L (3.5-5.1); SODIUM SERUM 135 mmol/L (136-145); UREA NITROGEN, BLOOD 14 mg/dL (7-18)
[2019-01-01 12:57] LABS: ALANINE AMINOTRANSFERASE 26 U/L (12-78); ALBUMIN 3.2 g/dL (3.4-5.0); ALKALINE PHOSPHATASE 49 U/L (46-116); ASPARTATE AMINOTRANSFERASE 21 U/L (15-37); BILIRUBIN,TOTAL 0.5 mg/dL (0.1-1.0); HCG,QUANTITATIVE < 1 mIU/mL (0-6)
[2019-01-01] MEDS ORDERED: ZOLPIDEM TARTRATE 10 MG TABLET PO PRN (14:00)
[2019-01-01] MEDS ORDERED: HALOPERIDOL 5 MG TABLET PO PRN (14:00)
[2019-01-01] MEDS ORDERED: ACETAMINOPHEN 325 MG TABLET PO PRN (14:00)
[2019-01-01] MEDS ORDERED: IBUPROFEN 400 MG TABLET PO PRN (14:00)
[2019-01-01 16:32] VITALS: BP 138/73
[2019-01-02 05:42] VITALS: BP 130/81
[2019-01-02 08:30] VITALS: BP 146/77
[2019-01-02] MEDS ORDERED: CloNIDine HCL 0.1 MG TABLET PO PRN (08:45)
[2019-01-02] MEDS ORDERED: ACETAMINOPHEN 325 MG TABLET PO PRN (08:45)
[2019-01-02] MEDS ORDERED: MAG HYDROX/AL HYDROX/SIMETH ES 30 ML SUSPENSION UDCUP PO PRN (08:45)
[2019-01-02] MEDS ORDERED: BACITRACIN 28.4 GM OINTMENT TP PRN (08:45)
[2019-01-02] MEDS ORDERED: ONDANSETRON HCL 4 MG TABLET PO PRN (08:45)
[2019-01-02] MEDS ORDERED: ALBUTEROL SULFATE HFA 90 MCG/PUFF 8 GM INHALER IH PRN (08:45)
[2019-01-02] MEDS ORDERED: PETROLATUM,WHITE 71 GM JELLY TP PRN (08:45)
[2019-01-02] MEDS ORDERED: LOPERAMIDE HCL 2 MG CAPSULE PO PRN (08:45)
[2019-01-02] MEDS ORDERED: IBUPROFEN 600 MG TABLET PO PRN (08:45)
[2019-01-02] MEDS ORDERED: BENZOCAINE/MENTHOL LOZENGE MM PRN (08:45)
[2019-01-02] MEDS ORDERED: MAGNESIUM HYDROXIDE SUSPENSION 30 ML UDCUP PO PRN (08:45)
[2019-01-02 08:46] LABS: BASOPHILS % (AUTO) 0.6 % (0.0-2.0); EOSINOPHILS % (AUTO) 9.1 % (1.0-6.0); HEMATOCRIT 33.7 % (36-46); LYMPHOCYTES # (AUTO) 2.5 K/uL (1.0-4.8); LYMPHOCYTES % (AUTO) 35.4 % (22.0-44.0); MEAN CORPUSCULAR HEMOGLOBIN 23.9 pg (26.0-34.0); MEAN CORPUSCULAR HGB CONC 32.6 G/dL (31.0-37.0); MEAN CORPUSCULAR VOLUME 73 fL (80-100); MONOCYTES # (AUTO) 0.4 K/uL (0.1-1.0); MONOCYTES % (AUTO) 6.4 % (2.0-9.0); NEUTROPHILS # (AUTO) 3.4 K/uL (1.8-7.7); NEUTROPHILS % (AUTO) 48.5 % (40.0-70.0); PLATELET COUNT (AUTO) 295 K/uL (150-450); RED BLOOD CELL COUNT(AUTO) 4.59 MIL/uL (4.00-5.20); RED CELL DISTRIBUTION WIDTH 16.7 % (11.5-14.5)
[2019-01-02 09:05] LABS: HEMOGLOBIN A1C 5.2 % (4.5-6.2)
[2019-01-02 09:28] LABS: ALANINE AMINOTRANSFERASE 21 U/L (12-78); ALBUMIN 2.8 g/dL (3.4-5.0); ALKALINE PHOSPHATASE 44 U/L (46-116); ANION GAP 6 mmol/L (8-16); ASPARTATE AMINOTRANSFERASE 19 U/L (15-37); BILIRUBIN,TOTAL 0.3 mg/dL (0.1-1.0); CALCIUM, TOTAL 8.5 mg/dL (8.8-10.5); CARBON DIOXIDE 25 mmol/L (22-29); CHLORIDE 104 mmol/L (98-107); CHOL/HDL RATIO 2.8 (3.9-5.7); CHOLESTEROL 124 mg/dL (131-200); CREATININE 0.57 mg/dL (0.60-1.30); GLOMERULAR FILTR. RATE CALC > 60 mL/min (>60); GLUCOSE,RANDOM 107 mg/dL (70-110); HDL CHOLESTEROL 45 mg/dL (40-60); LDL CHOL (CALC.) 72 mg/dL (0-130); POTASSIUM 3.8 mmol/L (3.5-5.1); SODIUM SERUM 135 mmol/L (136-145); THYROID STIMULATING HORMONE 1.04 uIU/mL (0.36-3.74); TOTAL PROTEIN, SERUM 6.2 g/dL (6.4-8.2); TRIGLYCERIDES 36 mg/dL (15-150); UREA NITROGEN, BLOOD 17 mg/dL (7-18)
[2019-01-02] MEDS: OMEPRAZOLE 20 MG CAPSULE PO SCH (10:09)
[2019-01-02] MEDS: DOCUSATE SODIUM 100 MG CAPSULE PO SCH (10:09)
[2019-01-02] MEDS: LORazepam 2 MG TABLET PO PRN (10:11)
[2019-01-02] MEDS ORDERED: DiphenhydrAMINE HCL 50 MG/ML VIAL IM ONE (12:00)
[2019-01-02] MEDS ORDERED: LORazepam 2 MG/ML VIAL IM ONE (12:00)
[2019-01-02] MEDS ORDERED: HALOPERIDOL LACTATE 5 MG/ML VIAL IM ONE (12:00)
[2019-01-02] MEDS ORDERED: DiphenhydrAMINE HCL 50 MG/ML VIAL ONE (12:02)
[2019-01-02] MEDS ORDERED: HALOPERIDOL LACTATE 5 MG/ML VIAL ONE (12:02)
[2019-01-02 16:25] VITALS: BP 134/78
[2019-01-02] MEDS: ARIPiprazole 10 MG TABLET PO SCH (20:40)
[2019-01-02] MEDS: DIVALPROEX SODIUM 500 MG ER TABLET PO SCH (20:40)
[2019-01-03 00:18] VITALS: BP 136/79
[2019-01-03] MEDS: DOCUSATE SODIUM 100 MG CAPSULE PO SCH (09:00)
[2019-01-03] MEDS: OMEPRAZOLE 20 MG CAPSULE PO SCH (09:00)
[2019-01-03] MEDS: LORazepam 2 MG TABLET PO PRN (16:43)
[2019-01-03 16:57] VITALS: BP 113/52
[2019-01-03] MEDS: DIVALPROEX SODIUM 500 MG ER TABLET PO SCH (20:37)
[2019-01-03] MEDS: ARIPiprazole 10 MG TABLET PO SCH (20:38)
[2019-01-04 03:44] VITALS: BP 110/72
[2019-01-04 08:31] VITALS: BP 108/82
[2019-01-04 08:32] VITALS: BP 108/82
[2019-01-04] MEDS: OMEPRAZOLE 20 MG CAPSULE PO SCH (08:46)
[2019-01-04] MEDS: DOCUSATE SODIUM 100 MG CAPSULE PO SCH (08:47)
[2019-01-04] MEDS ORDERED: ARIP10TA8 PO (13:32)
[2019-01-04] MEDS ORDERED: DIVA500T52 PO (13:32)
[2019-01-04] MEDS ORDERED: DSS100 PO (13:32)
[2019-01-04] MEDS ORDERED: OMEP20 PO (13:32)
== END 2019-01-04 14:30 | disposition home or self-care (01) | DRG 750 ==
LOC: EMS 12:03 → B2S 14:40
PROVIDERS: ADMIT Psychiatry & Neurology Psychiatry; ATTEND Psychiatry & Neurology Psychiatry
DX: F25.0 Schizoaffective disorder, bipolar type (principal); E66.01 Morbid (severe) obesity due to excess calories; R45.851 Suicidal ideations; Z68.38 Body mass index [BMI] 38.0-38.9, adult; F10.10 Alcohol abuse, uncomplicated; F15.10 Other stimulant abuse, uncomplicated; F17.210 Nicotine dependence, cigarettes, uncomplicated; F41.9 Anxiety disorder, unspecified; M54.9 Dorsalgia, unspecified; G47.00 Insomnia, unspecified; K59.00 Constipation, unspecified; Z59.0 Homelessness; Z91.14 Patient's other noncompliance with medication regimen; Z71.41 Alcohol abuse counseling and surveillance of alcoholic; Z71.6 Tobacco abuse counseling; Z71.51 Drug abuse counseling and surveillance of drug abuser; Z98.891 History of uterine scar from previous surgery; Z56.0 Unemployment, unspecified
CPT/HCPCS: 83036; 84443; 90686; G0480; J1200; J1630; J2060

== ENCOUNTER 2019-02-01 13:45 | Inpatient (IN) | payer MEDICAID ==
[~2019-02-01] VITALS: Ht 162.6 cm; Wt 102.7 kg
[~2019-02-01 13:45] MED LIST changes: -ARIP10TA8 PO; +ARIP15TA2 PO; +ARIP882S IM; +DIVA250T45 PO; -DIVA500T52 PO
[2019-02-01 19:15] VITALS: BP 136/76
[2019-02-02 06:23] VITALS: BP 106/62
[2019-02-02 08:00] VITALS: BP 119/56
[2019-02-02 08:31] LABS: BASOPHILS % (AUTO) 0.6 % (0.0-2.0); EOSINOPHILS % (AUTO) 7.6 % (1.0-6.0); HEMATOCRIT 35.5 % (36-46); HEMOGLOBIN 11.4 g/dL (12.0-16.0); LYMPHOCYTES % (AUTO) 36.8 % (22.0-44.0); MEAN CORPUSCULAR HEMOGLOBIN 23.8 pg (26.0-34.0); MEAN CORPUSCULAR VOLUME 74 fL (80-100); MONOCYTES # (AUTO) 0.3 K/uL (0.1-1.0); MONOCYTES % (AUTO) 5.7 % (2.0-9.0); NEUTROPHILS # (AUTO) 2.7 K/uL (1.8-7.7); NEUTROPHILS % (AUTO) 49.3 % (40.0-70.0); PLATELET COUNT (AUTO) 321 K/uL (150-450); RED BLOOD CELL COUNT(AUTO) 4.77 MIL/uL (4.00-5.20); RED CELL DISTRIBUTION WIDTH 16.9 % (11.5-14.5)
[2019-02-02 09:32] LABS: ALANINE AMINOTRANSFERASE 16 U/L (12-78); ALBUMIN 3.1 g/dL (3.4-5.0); ALKALINE PHOSPHATASE 47 U/L (46-116); ANION GAP 6 mmol/L (8-16); ASPARTATE AMINOTRANSFERASE 14 U/L (15-37); BILIRUBIN,TOTAL 0.3 mg/dL (0.1-1.0); CALCIUM, TOTAL 9.3 mg/dL (8.8-10.5); CARBON DIOXIDE 29 mmol/L (22-29); CHLORIDE 103 mmol/L (98-107); CHOL/HDL RATIO 3.3 (3.9-5.7); CHOLESTEROL 152 mg/dL (131-200); CREATININE 0.71 mg/dL (0.60-1.30); FREE T4 (FREE THYROXINE) 1.17 ng/dL (0.76-1.46); GLOMERULAR FILTR. RATE CALC > 60 mL/min (>60); GLUCOSE,RANDOM 83 mg/dL (70-110); HCG,QUANTITATIVE < 1 mIU/mL (0-6); HDL CHOLESTEROL 46 mg/dL (40-60); LDL CHOL (CALC.) 96 mg/dL (0-130); POTASSIUM 4.4 mmol/L (3.5-5.1); SODIUM SERUM 138 mmol/L (136-145); THYROID STIMULATING HORMONE 1.32 uIU/mL (0.36-3.74); TOTAL PROTEIN, SERUM 6.8 g/dL (6.4-8.2); TRIGLYCERIDES 51 mg/dL (15-150); UREA NITROGEN, BLOOD 17 mg/dL (7-18)
[2019-02-02 16:00] VITALS: BP 103/63
[2019-02-02] MEDS: HALOPERIDOL 5 MG TABLET PO PRN (16:02)
[2019-02-02] MEDS: LORazepam 2 MG TABLET PO PRN (16:02)
[2019-02-02] MEDS: ARIPiprazole 15 MG TABLET PO SCH (20:37)
[2019-02-02] MEDS: DIVALPROEX SODIUM 250 MG ER TABLET PO SCH (20:38)
[2019-02-02] MEDS ORDERED: MAGNESIUM HYDROXIDE SUSPENSION 30 ML UDCUP PO PRN (21:15)
[2019-02-02] MEDS ORDERED: ONDANSETRON HCL 4 MG TABLET PO PRN (21:15)
[2019-02-02] MEDS ORDERED: CloNIDine HCL 0.1 MG TABLET PO PRN (21:15)
[2019-02-02] MEDS ORDERED: LOPERAMIDE HCL 2 MG CAPSULE PO PRN (21:15)
[2019-02-02] MEDS ORDERED: ALBUTEROL SULFATE HFA 90 MCG/PUFF 8 GM INHALER IH PRN (21:15)
[2019-02-02] MEDS ORDERED: BENZOCAINE/MENTHOL LOZENGE MM PRN (21:15)
[2019-02-02] MEDS ORDERED: BACITRACIN 28.4 GM OINTMENT TP PRN (21:15)
[2019-02-02] MEDS ORDERED: ACETAMINOPHEN 325 MG TABLET PO PRN (21:15)
[2019-02-02] MEDS ORDERED: IBUPROFEN 600 MG TABLET PO PRN (21:15)
[2019-02-02] MEDS ORDERED: PETROLATUM,WHITE 71 GM JELLY TP PRN (21:15)
[2019-02-02] MEDS ORDERED: MAG HYDROX/AL HYDROX/SIMETH ES 30 ML SUSPENSION UDCUP PO PRN (21:15)
[2019-02-02] MEDS: ZOLPIDEM TARTRATE 10 MG TABLET PO PRN (21:31)
[2019-02-03 05:57] VITALS: BP 105/68
[2019-02-03] MEDS: OMEPRAZOLE 20 MG CAPSULE PO SCH (08:46)
[2019-02-03] MEDS: DOCUSATE SODIUM 100 MG CAPSULE PO SCH (08:46)
[2019-02-03] MEDS: LORazepam 2 MG TABLET PO PRN ×2 (08:46→20:25)
[2019-02-03 16:09] VITALS: BP 111/72
[2019-02-03] MEDS: DIVALPROEX SODIUM 250 MG ER TABLET PO SCH (20:25)
[2019-02-03] MEDS: ARIPiprazole 15 MG TABLET PO SCH (20:25)
[2019-02-03] MEDS: HALOPERIDOL 5 MG TABLET PO PRN (20:25)
[2019-02-04 06:13] VITALS: BP 100/67
[2019-02-04 08:14] VITALS: BP 118/64
[2019-02-04] MEDS: OMEPRAZOLE 20 MG CAPSULE PO SCH (09:00)
[2019-02-04] MEDS: DOCUSATE SODIUM 100 MG CAPSULE PO SCH (09:00)
[2019-02-04 16:56] VITALS: BP 101/61
[2019-02-04] MEDS: DIVALPROEX SODIUM 250 MG ER TABLET PO SCH (21:01)
[2019-02-04] MEDS: ARIPiprazole 15 MG TABLET PO SCH (21:01)
[2019-02-05 07:57] VITALS: BP 124/82
[2019-02-05 08:16] VITALS: BP 124/82
[2019-02-05] MEDS: DOCUSATE SODIUM 100 MG CAPSULE PO SCH (08:49)
[2019-02-05] MEDS: OMEPRAZOLE 20 MG CAPSULE PO SCH (08:49)
[2019-02-05] MEDS ORDERED: HALOPERIDOL LACTATE 5 MG/ML VIAL ONE (13:32)
[2019-02-05] MEDS ORDERED: DiphenhydrAMINE HCL 50 MG/ML VIAL ONE (13:32)
[2019-02-05] MEDS ORDERED: LORazepam 2 MG/ML VIAL ONE (13:32)
[2019-02-05] MEDS ORDERED: DiphenhydrAMINE HCL 50 MG/ML VIAL IM ONE (13:45)
[2019-02-05] MEDS ORDERED: LORazepam 2 MG/ML VIAL IM ONE (13:45)
[2019-02-05] MEDS ORDERED: HALOPERIDOL LACTATE 5 MG/ML VIAL IM ONE (13:45)
[2019-02-05] MEDS: ARIPiprazole 15 MG TABLET PO SCH (20:17)
[2019-02-05] MEDS: LORazepam 2 MG TABLET PO PRN (20:17)
[2019-02-05] MEDS: DIVALPROEX SODIUM 250 MG ER TABLET PO SCH (20:17)
[2019-02-06 00:52] VITALS: BP 130/62
[2019-02-06] MEDS: DOCUSATE SODIUM 100 MG CAPSULE PO SCH (08:03)
[2019-02-06] MEDS: OMEPRAZOLE 20 MG CAPSULE PO SCH (08:04)
[2019-02-06 16:16] VITALS: BP 123/75
[2019-02-06] MEDS: HALOPERIDOL 5 MG TABLET PO PRN (16:16)
[2019-02-06] MEDS: LORazepam 2 MG TABLET PO PRN (16:16)
[2019-02-06] MEDS: ARIPiprazole 15 MG TABLET PO SCH (20:57)
[2019-02-06] MEDS: DIVALPROEX SODIUM 250 MG ER TABLET PO SCH (20:57)
[2019-02-06] MEDS: ZOLPIDEM TARTRATE 10 MG TABLET PO PRN (20:57)
[2019-02-07 08:21] VITALS: BP 131/75
[2019-02-07] MEDS: DOCUSATE SODIUM 100 MG CAPSULE PO SCH (08:51)
[2019-02-07] MEDS: OMEPRAZOLE 20 MG CAPSULE PO SCH (08:51)
[2019-02-07] MEDS: LORazepam 2 MG TABLET PO PRN ×2 (08:51→16:05)
[2019-02-07] MEDS ORDERED: ARIPiprazole LAUROXIL ER SUSPENSION 882 MG/3.2 ML SYRINGE IM SCH (09:00)
[2019-02-07 16:10] VITALS: BP 106/64
[2019-02-07] MEDS: DIVALPROEX SODIUM 250 MG ER TABLET PO SCH (20:11)
[2019-02-07] MEDS: ARIPiprazole 15 MG TABLET PO SCH (20:11)
[2019-02-08 06:21] VITALS: BP 126/80
[2019-02-08 06:22] VITALS: BP 105/69
[2019-02-08 08:27] VITALS: BP 157/69
[2019-02-08] MEDS: LORazepam 2 MG TABLET PO PRN ×2 (08:28→16:08)
[2019-02-08] MEDS: DOCUSATE SODIUM 100 MG CAPSULE PO SCH (08:28)
[2019-02-08] MEDS: HALOPERIDOL 5 MG TABLET PO PRN ×2 (08:29→16:08)
[2019-02-08] MEDS: OMEPRAZOLE 20 MG CAPSULE PO SCH (08:29)
[2019-02-08 14:49] VITALS: BP 104/68
[2019-02-08 16:25] VITALS: BP 118/72
[2019-02-08] MEDS: DIVALPROEX SODIUM 250 MG ER TABLET PO SCH (20:08)
[2019-02-08] MEDS: ARIPiprazole 15 MG TABLET PO SCH (20:08)
[2019-02-09 00:40] VITALS: BP 109/65
[2019-02-09] MEDS: MULTIVITAMINS WITH IRON TABLET PO SCH (07:17)
[2019-02-09 08:27] VITALS: BP 108/75
[2019-02-09] MEDS: DOCUSATE SODIUM 100 MG CAPSULE PO SCH (08:42)
[2019-02-09] MEDS: OMEPRAZOLE 20 MG CAPSULE PO SCH (08:42)
[2019-02-09] MEDS: HALOPERIDOL 5 MG TABLET PO PRN (16:18)
[2019-02-09] MEDS: LORazepam 2 MG TABLET PO PRN (16:18)
[2019-02-09 16:34] VITALS: BP 106/68
[2019-02-09] MEDS: ARIPiprazole 15 MG TABLET PO SCH (20:39)
[2019-02-09] MEDS: DIVALPROEX SODIUM 250 MG ER TABLET PO SCH (20:39)
[2019-02-09] MEDS: ZOLPIDEM TARTRATE 10 MG TABLET PO PRN (20:39)
[2019-02-10 01:45] VITALS: BP 110/72
[2019-02-10] MEDS: MULTIVITAMINS WITH IRON TABLET PO SCH (07:06)
[2019-02-10 08:00] VITALS: BP 103/54
[2019-02-10] MEDS: DOCUSATE SODIUM 100 MG CAPSULE PO SCH (09:32)
[2019-02-10] MEDS: OMEPRAZOLE 20 MG CAPSULE PO SCH (09:32)
[2019-02-10] MEDS: HALOPERIDOL 5 MG TABLET PO PRN (14:49)
[2019-02-10] MEDS: LORazepam 2 MG TABLET PO PRN (14:49)
[2019-02-10 16:25] VITALS: BP 114/71
[2019-02-10] MEDS: ARIPiprazole 15 MG TABLET PO SCH (20:21)
[2019-02-10] MEDS: DIVALPROEX SODIUM 250 MG ER TABLET PO SCH (20:21)
[2019-02-11 03:37] VITALS: BP 112/69
[2019-02-11] MEDS: MULTIVITAMINS WITH IRON TABLET PO SCH (06:28)
[2019-02-11] MEDS: DOCUSATE SODIUM 100 MG CAPSULE PO SCH (08:03)
[2019-02-11] MEDS: OMEPRAZOLE 20 MG CAPSULE PO SCH (08:03)
[2019-02-11] MEDS: LORazepam 2 MG TABLET PO PRN ×2 (08:03→16:59)
[2019-02-11 08:12] VITALS: BP 109/68
[2019-02-11 16:24] VITALS: BP 134/79
[2019-02-11] MEDS: DIVALPROEX SODIUM 250 MG ER TABLET PO SCH (20:22)
[2019-02-11] MEDS: ARIPiprazole 15 MG TABLET PO SCH (20:22)
[2019-02-12] MEDS: MULTIVITAMINS WITH IRON TABLET PO SCH (06:53)
[2019-02-12 07:01] VITALS: BP 113/63
[2019-02-12 08:08] VITALS: BP 108/60
[2019-02-12] MEDS: DOCUSATE SODIUM 100 MG CAPSULE PO SCH (08:13)
[2019-02-12] MEDS: OMEPRAZOLE 20 MG CAPSULE PO SCH (08:13)
[2019-02-12] MEDS: LORazepam 2 MG TABLET PO PRN (08:13)
[2019-02-12 16:00] VITALS: BP 110/72
[2019-02-12] MEDS: ARIPiprazole 15 MG TABLET PO SCH (20:14)
[2019-02-12] MEDS: DIVALPROEX SODIUM 250 MG ER TABLET PO SCH (20:14)
[2019-02-13] MEDS: MULTIVITAMINS WITH IRON TABLET PO SCH (07:03)
[2019-02-13 07:11] VITALS: BP 115/70
[2019-02-13 08:01] VITALS: BP 119/68
[2019-02-13] MEDS: OMEPRAZOLE 20 MG CAPSULE PO SCH (08:16)
[2019-02-13] MEDS: LORazepam 2 MG TABLET PO PRN (08:16)
[2019-02-13] MEDS: DOCUSATE SODIUM 100 MG CAPSULE PO SCH (08:16)
== END 2019-02-13 14:05 | disposition home or self-care (01) | DRG 750 ==
LOC: B3A 18:45
PROVIDERS: ADMIT Psychiatry & Neurology Child & Adolescent Psychiatry; ATTEND Psychiatry & Neurology Psychiatry
DX: F25.0 Schizoaffective disorder, bipolar type (principal); R45.851 Suicidal ideations; E66.01 Morbid (severe) obesity due to excess calories; F29 Unspecified psychosis not due to a substance or known physiological condition; F41.9 Anxiety disorder, unspecified; G47.00 Insomnia, unspecified; K59.00 Constipation, unspecified; F15.90 Other stimulant use, unspecified, uncomplicated; F17.200 Nicotine dependence, unspecified, uncomplicated; F10.10 Alcohol abuse, uncomplicated; Z59.0 Homelessness; Z79.899 Other long term (current) drug therapy; Z98.891 History of uterine scar from previous surgery; Z68.38 Body mass index [BMI] 38.0-38.9, adult
CPT/HCPCS: 83036; 84439; 84443; 87081; 90686; J1200; J1630; J2060

== ENCOUNTER 2019-07-08 14:31 | Inpatient (IN) | payer MEDICAID, OTHER ==
[~2019-07-08] VITALS: Ht 162.6 cm; Wt 98.2 kg
[~2019-07-08 14:31] MED LIST changes: -ARIP882S IM
[2019-07-08 15:11] LABS: BASOPHILS % (AUTO) 0.6 % (0.0-2.0); EOSINOPHILS % (AUTO) 2.3 % (1.0-6.0); HEMATOCRIT 37.1 % (36-46); HEMOGLOBIN 11.9 g/dL (12.0-16.0); LYMPHOCYTES # (AUTO) 2.1 K/uL (1.0-4.8); LYMPHOCYTES % (AUTO) 27.1 % (22.0-44.0); MEAN CORPUSCULAR HEMOGLOBIN 24.7 pg (26.0-34.0); MEAN CORPUSCULAR VOLUME 77 fL (80-100); MONOCYTES # (AUTO) 0.7 K/uL (0.1-1.0); MONOCYTES % (AUTO) 8.7 % (2.0-9.0); NEUTROPHILS # (AUTO) 4.8 K/uL (1.8-7.7); NEUTROPHILS % (AUTO) 61.3 % (40.0-70.0); PLATELET COUNT (AUTO) 330 K/uL (150-450); RED BLOOD CELL COUNT(AUTO) 4.82 MIL/uL (4.00-5.20); RED CELL DISTRIBUTION WIDTH 16.7 % (11.5-14.5)
[2019-07-08 15:28] LABS: ALANINE AMINOTRANSFERASE 19 U/L (12-78); ALBUMIN 3.3 g/dL (3.4-5.0); ALKALINE PHOSPHATASE 66 U/L (46-116); ANION GAP 9 mmol/L (8-16); ASPARTATE AMINOTRANSFERASE 16 U/L (15-37); BILIRUBIN,TOTAL 0.4 mg/dL (0.1-1.0); CALCIUM, TOTAL 9.3 mg/dL (8.8-10.5); CARBON DIOXIDE 27 mmol/L (22-29); CHLORIDE 106 mmol/L (98-107); CREATININE 0.77 mg/dL (0.60-1.30); GLOMERULAR FILTR. RATE CALC > 60 mL/min (>60); GLUCOSE,RANDOM 91 mg/dL (70-110); POTASSIUM 3.5 mmol/L (3.5-5.1); SODIUM SERUM 142 mmol/L (136-145); TOTAL PROTEIN, SERUM 7.5 g/dL (6.4-8.2); VALPROIC ACID < 3 mcg/mL (50-100)
[2019-07-08 15:29] LABS: ACETAMINOPHEN < 2 mcg/mL (10-30)
[2019-07-08 15:37] LABS: SALICYLATE 0.8 mg/dL (2.8-20.0)
[2019-07-08 16:04] LABS: UREA NITROGEN, BLOOD 11 mg/dL (7-18)
[2019-07-08] MEDS ORDERED: ZOLPIDEM TARTRATE 10 MG TABLET PO PRN (21:00)
[2019-07-08] MEDS ORDERED: NICOTINE 14 MG/24 HOUR PATCH TD PRN (21:30)
[2019-07-08] MEDS ORDERED: MAG HYDROX/AL HYDROX/SIMETH ES 30 ML SUSPENSION UDCUP PO PRN (21:30)
[2019-07-08] MEDS ORDERED: PETROLATUM,WHITE 28 GM JELLY TP PRN (21:30)
[2019-07-08] MEDS ORDERED: LOPERAMIDE HCL 2 MG CAPSULE PO PRN (21:30)
[2019-07-08] MEDS ORDERED: CloNIDine HCL 0.1 MG TABLET PO PRN (21:30)
[2019-07-08] MEDS ORDERED: ALBUTEROL SULFATE HFA 90 MCG/PUFF 8 GM INHALER IH PRN (21:30)
[2019-07-08] MEDS ORDERED: GuaiFENesin/D-METHORPHAN [SUGAR-FREE] 200-20MG/10 ML SYRUP UDCUP PO PRN (21:30)
[2019-07-08] MEDS ORDERED: MAGNESIUM HYDROXIDE SUSPENSION 30 ML UDCUP PO PRN (21:30)
[2019-07-08] MEDS ORDERED: ACETAMINOPHEN 325 MG TABLET PO PRN (21:30)
[2019-07-08] MEDS ORDERED: DOCUSATE SODIUM 100 MG CAPSULE PO PRN (21:30)
[2019-07-08] MEDS ORDERED: IBUPROFEN 400 MG TABLET PO PRN (21:30)
[2019-07-08] MEDS ORDERED: ONDANSETRON HCL 4 MG TABLET PO PRN (21:30)
[2019-07-08 22:49] LABS: AMPHET/METH SCREEN,URINE POSITIVE (NEGATIVE); BARBITURATE SCREEN, URINE NEGATIVE (NEGATIVE); BENZODIAZEPINES SCREEN,URINE POSITIVE (NEGATIVE); CANNABINOID SCREEN,URINE NEGATIVE (NEGATIVE); COCAINE SCREEN,URINE NEGATIVE (NEGATIVE); METHADONE SCREEN, URINE NEGATIVE (NEGATIVE); OPIATE SCREEN,URINE NEGATIVE (NEGATIVE); PHENCYCLIDINE SCREEN,URINE NEGATIVE (NEGATIVE)
[2019-07-09] MEDS: DIVALPROEX SODIUM 250 MG ER TABLET PO SCH (20:24)
[2019-07-09 21:12] VITALS: BP 122/89
[2019-07-10] MEDS: ARIPiprazole 15 MG TABLET PO SCH (09:18)
[2019-07-10 13:13] VITALS: BP 101/64
[2019-07-10 17:56] VITALS: BP 119/77
[2019-07-10] MEDS: DIVALPROEX SODIUM 250 MG ER TABLET PO SCH (21:15)
[2019-07-11] MEDS: ARIPiprazole 15 MG TABLET PO SCH (08:54)
[2019-07-11 09:04] VITALS: BP 102/62
[2019-07-11] MEDS ORDERED: ARIPiprazole ER SUSPENSION 400 MG PRE-FILLED DUAL CHAMBER SYRINGE IM ONE (12:30)
[2019-07-11 16:35] VITALS: BP 111/74
[2019-07-11] MEDS: DIVALPROEX SODIUM 250 MG ER TABLET PO SCH (20:32)
[2019-07-12] MEDS: ARIPiprazole 15 MG TABLET PO SCH (07:39)
[2019-07-12 08:00] VITALS: BP 131/51
[2019-07-12 16:52] VITALS: BP 99/67
[2019-07-12 18:05] VITALS: BP 113/65
[2019-07-12] MEDS: DIVALPROEX SODIUM 250 MG ER TABLET PO SCH (21:41)
[2019-07-13 08:00] VITALS: BP 140/70
[2019-07-13] MEDS: ARIPiprazole 15 MG TABLET PO SCH (09:51)
[2019-07-13 16:13] VITALS: BP 130/81
[2019-07-13] MEDS: HALOPERIDOL 5 MG TABLET PO PRN (19:42)
[2019-07-13] MEDS: DIVALPROEX SODIUM 250 MG ER TABLET PO SCH (21:13)
[2019-07-13] MEDS: LORazepam 2 MG TABLET PO PRN (21:13)
[2019-07-14 09:18] VITALS: BP 116/77
[2019-07-14] MEDS: ARIPiprazole 15 MG TABLET PO SCH (09:54)
[2019-07-14 18:14] VITALS: BP 107/61
[2019-07-14] MEDS: DIVALPROEX SODIUM 250 MG ER TABLET PO SCH (21:00)
[2019-07-15 00:43] VITALS: BP 134/85
[2019-07-15] MEDS: ARIPiprazole 15 MG TABLET PO SCH (08:05)
[2019-07-15] MEDS: LORazepam 2 MG TABLET PO PRN (08:05)
[2019-07-15] MEDS: HALOPERIDOL 5 MG TABLET PO PRN (08:05)
[2019-07-15 13:03] VITALS: BP 121/76
[2019-07-15] MEDS: DIVALPROEX SODIUM 250 MG ER TABLET PO SCH (21:00)
[2019-07-16] MEDS: ARIPiprazole 15 MG TABLET PO SCH (08:45)
[2019-07-16 14:41] VITALS: BP 102/56
[2019-07-16] MEDS: LORazepam 2 MG TABLET PO PRN (15:59)
[2019-07-16] MEDS: HALOPERIDOL 5 MG TABLET PO PRN (15:59)
[2019-07-16 19:10] VITALS: BP 114/71
[2019-07-16] MEDS: DIVALPROEX SODIUM 250 MG ER TABLET PO SCH (21:02)
[2019-07-17 08:00] VITALS: BP 106/65
[2019-07-17] MEDS: LORazepam 2 MG TABLET PO PRN ×2 (08:44→16:14)
[2019-07-17] MEDS: HALOPERIDOL 5 MG TABLET PO PRN ×2 (08:44→16:15)
[2019-07-17] MEDS: ARIPiprazole 15 MG TABLET PO SCH (08:45)
[2019-07-17] MEDS ORDERED: ARIPiprazole ER SUSPENSION 400 MG PRE-FILLED DUAL CHAMBER SYRINGE IM SCH (11:15)
[2019-07-17] MEDS: DIVALPROEX SODIUM 250 MG ER TABLET PO SCH (20:11)
[2019-07-18 08:00] VITALS: BP 106/61
[2019-07-18] MEDS: ARIPiprazole 15 MG TABLET PO SCH (08:14)
[2019-07-18] MEDS ORDERED: ARIP400S3 IM (08:50)
[2019-08-08] MEDS ORDERED: ARIPiprazole ER SUSPENSION 400 MG PRE-FILLED DUAL CHAMBER SYRINGE IM SCH (09:00)
== END 2019-07-18 10:40 | disposition home or self-care (01) | DRG 750 ==
LOC: EMS 14:33 → 3EC 07-09 19:05
PROVIDERS: ADMIT Psychiatry & Neurology Psychiatry; ATTEND Psychiatry & Neurology Psychiatry
DX: F25.0 Schizoaffective disorder, bipolar type (principal); Z59.0 Homelessness; D64.9 Anemia, unspecified; F17.210 Nicotine dependence, cigarettes, uncomplicated; F41.9 Anxiety disorder, unspecified; G89.29 Other chronic pain; M54.9 Dorsalgia, unspecified
CPT/HCPCS: G0480; G0481; J0401

== ENCOUNTER 2019-07-24 22:55 | Inpatient (IN) | payer MEDICAID, OTHER ==
[~2019-07-24] VITALS: Ht 157.5 cm; Wt 96.6 kg
[~2019-07-24 22:55] MED LIST changes: +ARIP400S3 IM
[2019-07-24] MEDS ORDERED: QUET25TA PO (23:16)
[2019-07-24 23:53] LABS: BASOPHILS % (AUTO) 0.5 % (0.0-2.0); EOSINOPHILS % (AUTO) 4.7 % (1.0-6.0); HEMATOCRIT 35.5 % (36-46); HEMOGLOBIN 11.3 g/dL (12.0-16.0); LYMPHOCYTES # (AUTO) 2.5 K/uL (1.0-4.8); LYMPHOCYTES % (AUTO) 30.3 % (22.0-44.0); MEAN CORPUSCULAR HEMOGLOBIN 24.7 pg (26.0-34.0); MEAN CORPUSCULAR HGB CONC 31.7 G/dL (31.0-37.0); MEAN CORPUSCULAR VOLUME 78 fL (80-100); MONOCYTES # (AUTO) 0.7 K/uL (0.1-1.0); MONOCYTES % (AUTO) 8.8 % (2.0-9.0); NEUTROPHILS # (AUTO) 4.6 K/uL (1.8-7.7); NEUTROPHILS % (AUTO) 55.7 % (40.0-70.0); PLATELET COUNT (AUTO) 269 K/uL (150-450); RED BLOOD CELL COUNT(AUTO) 4.56 MIL/uL (4.00-5.20); RED CELL DISTRIBUTION WIDTH 16.1 % (11.5-14.5)
[2019-07-25 00:09] LABS: ANION GAP 5 mmol/L (8-16); CALCIUM, TOTAL 8.8 mg/dL (8.8-10.5); CARBON DIOXIDE 28 mmol/L (22-29); CHLORIDE 103 mmol/L (98-107); GLOMERULAR FILTR. RATE CALC > 60 mL/min (>60); GLUCOSE,RANDOM 102 mg/dL (70-110); POTASSIUM 3.8 mmol/L (3.5-5.1); SODIUM SERUM 136 mmol/L (136-145); UREA NITROGEN, BLOOD 16 mg/dL (7-18)
[2019-07-25 00:15] LABS: ALANINE AMINOTRANSFERASE 11 U/L (12-78); ALBUMIN 3.3 g/dL (3.4-5.0); ALKALINE PHOSPHATASE 63 U/L (46-116); ASPARTATE AMINOTRANSFERASE 25 U/L (15-37); BILIRUBIN,TOTAL 0.4 mg/dL (0.1-1.0); TOTAL PROTEIN, SERUM 7.5 g/dL (6.4-8.2)
[2019-07-25 00:56] LABS: AMPHET/METH SCREEN,URINE POSITIVE (NEGATIVE); BARBITURATE SCREEN, URINE NEGATIVE (NEGATIVE); BENZODIAZEPINES SCREEN,URINE NEGATIVE (NEGATIVE); CANNABINOID SCREEN,URINE NEGATIVE (NEGATIVE); COCAINE SCREEN,URINE NEGATIVE (NEGATIVE); METHADONE SCREEN, URINE NEGATIVE (NEGATIVE); OPIATE SCREEN,URINE NEGATIVE (NEGATIVE)
[2019-07-25 01:05] LABS: PHENCYCLIDINE SCREEN,URINE NEGATIVE (NEGATIVE)
[2019-07-25] MEDS ORDERED: ACETAMINOPHEN 325 MG TABLET PO PRN (12:45)
[2019-07-25] MEDS ORDERED: IBUPROFEN 400 MG TABLET PO PRN (12:45)
[2019-07-25] MEDS ORDERED: ZOLPIDEM TARTRATE 10 MG TABLET PO PRN (12:45)
[2019-07-25 16:30] VITALS: BP 115/73
[2019-07-26 06:53] VITALS: BP 119/53
[2019-07-26 08:25] LABS: BASOPHILS % (AUTO) 0.4 % (0.0-2.0); HEMATOCRIT 35.7 % (36-46); HEMOGLOBIN 11.3 g/dL (12.0-16.0); LYMPHOCYTES # (AUTO) 2.4 K/uL (1.0-4.8); MEAN CORPUSCULAR HEMOGLOBIN 24.8 pg (26.0-34.0); MEAN CORPUSCULAR HGB CONC 31.8 G/dL (31.0-37.0); MEAN CORPUSCULAR VOLUME 78 fL (80-100); MONOCYTES # (AUTO) 0.4 K/uL (0.1-1.0); MONOCYTES % (AUTO) 5.7 % (2.0-9.0); NEUTROPHILS # (AUTO) 3.6 K/uL (1.8-7.7); NEUTROPHILS % (AUTO) 52.9 % (40.0-70.0); PLATELET COUNT (AUTO) 278 K/uL (150-450); RED BLOOD CELL COUNT(AUTO) 4.57 MIL/uL (4.00-5.20); RED CELL DISTRIBUTION WIDTH 16.2 % (11.5-14.5)
[2019-07-26 08:30] VITALS: BP 118/72
[2019-07-26 09:02] LABS: HEMOGLOBIN A1C 5.9 % (4.5-6.2)
[2019-07-26 09:08] LABS: ALANINE AMINOTRANSFERASE 15 U/L (12-78); ALBUMIN 3.2 g/dL (3.4-5.0); ALKALINE PHOSPHATASE 64 U/L (46-116); ANION GAP 6 mmol/L (8-16); ASPARTATE AMINOTRANSFERASE 17 U/L (15-37); BILIRUBIN,TOTAL 0.4 mg/dL (0.1-1.0); CARBON DIOXIDE 29 mmol/L (22-29); CHLORIDE 103 mmol/L (98-107); CHOL/HDL RATIO 4.4 (3.9-5.7); CHOLESTEROL 145 mg/dL (131-200); CREATININE 0.81 mg/dL (0.60-1.30); GLOMERULAR FILTR. RATE CALC > 60 mL/min (>60); GLUCOSE,RANDOM 119 mg/dL (70-110); HDL CHOLESTEROL 33 mg/dL (40-60); LDL CHOL (CALC.) 102 mg/dL (0-130); POTASSIUM 4.5 mmol/L (3.5-5.1); SODIUM SERUM 138 mmol/L (136-145); THYROID STIMULATING HORMONE 0.97 uIU/mL (0.36-3.74); TOTAL PROTEIN, SERUM 7.1 g/dL (6.4-8.2); TRIGLYCERIDES 50 mg/dL (15-150)
[2019-07-26 09:25] LABS: UREA NITROGEN, BLOOD 15 mg/dL (7-18)
[2019-07-26] MEDS: HALOPERIDOL 5 MG TABLET PO PRN (15:00)
[2019-07-26] MEDS: LORazepam 2 MG TABLET PO PRN (15:00)
[2019-07-26 16:22] VITALS: BP 130/80
[2019-07-26] MEDS: DIVALPROEX SODIUM 250 MG ER TABLET PO SCH (20:49)
[2019-07-27 06:07] VITALS: BP 119/76
[2019-07-27] MEDS: HALOPERIDOL 5 MG TABLET PO PRN (08:45)
[2019-07-27] MEDS: LORazepam 2 MG TABLET PO PRN (08:46)
[2019-07-27 16:10] VITALS: BP 104/68
[2019-07-27] MEDS: DIVALPROEX SODIUM 250 MG ER TABLET PO SCH (20:31)
[2019-07-28 01:30] VITALS: BP 116/65
[2019-07-28] MEDS ORDERED: ARIP400S3 IM (14:10)
[2019-07-28] MEDS ORDERED: NALT50TA PO (14:10)
[2019-07-28] MEDS ORDERED: DIVA250T45 PO (14:10)
[2019-07-28] MEDS ORDERED: NALT50TA6 PO (15:48)
[2019-07-28 16:21] VITALS: BP 113/67
[2019-07-29] MEDS ORDERED: NALTREXONE HCL 50 MG TABLET PO SCH (09:00)
[2019-08-11] MEDS ORDERED: ARIPiprazole ER SUSPENSION 400 MG PRE-FILLED DUAL CHAMBER SYRINGE IM SCH (09:00)
== END 2019-07-28 18:10 | disposition home or self-care (01) | DRG 750 ==
LOC: EMS 22:56 → B3A 07-25 14:11
PROVIDERS: ADMIT Psychiatry & Neurology Psychiatry; ATTEND Psychiatry & Neurology Psychiatry
DX: F25.0 Schizoaffective disorder, bipolar type (principal); R45.851 Suicidal ideations; Z59.0 Homelessness; D64.9 Anemia, unspecified; E87.6 Hypokalemia; F41.9 Anxiety disorder, unspecified; G89.29 Other chronic pain; K21.9 Gastro-esophageal reflux disease without esophagitis; F17.210 Nicotine dependence, cigarettes, uncomplicated; Z91.19 Patient's noncompliance with other medical treatment and regimen; Z71.6 Tobacco abuse counseling; Z71.51 Drug abuse counseling and surveillance of drug abuser
CPT/HCPCS: 83036; 84443; G0480